=== PATIENT | female | born 1980 | race Two or more races ===

== ENCOUNTER → 2016-10-01 | Day surgery (SDC) | payer OTHER ==
[~2016-10-01] VITALS: Ht 154.9 cm; Wt 108.0 kg
[2016-10-01] VITALS (14 sets, daily range): BP systolic 114–159; BP diastolic 58–92
[~2016-10-01] MED LIST: Bupivacaine w/Epi 0.25% 30ml Vial INJ ONE; Dexamethasone 4mg/ml vial ONE; EPINEPHrine 1mg/1ml Amp IRRIG ONE; Glycopyrrolate 0.2mg/ml 1ml Vial ONE; Hydromorphone 0.5mg/0.5ml inj IVP PRN; IBUPROFEN600 MG ORAL; Ketorolac 30mg Inj IV ONE; Ketorolac 30mg Inj ONE; Midazolam 2mg/2ml Inj ONE; Morphine Sulfate 2mg/ml Inj IVP PRN; NS Irrig 4000ml IRRIG ONE; Neostigmine 1mg/ml 10ml Inj ONE; Norco 5mg/325mg tab ORAL PRN; Propofol 10mg/ml 20ml IV ONE; Succinylcholine 20mg/ml 10ml vial ONE; TRAMADOL HCL50 MG ORAL; Zemuron 50mg/5ml Inj IV ONE; ceFAZolin 1gm/50ml Premix 50 ML IV ONE; celeBREX 200mg Cap **SURGERY PATIENTS ONLY ORAL ONE; fentaNYL 100 mcg/2 mL IV ONE; oxyCONTIN 20mg tab ORAL ONE
--- NOTE | 2016-10-01 07:19 | Pre-Procedure Note/Attestation ---
Pre-Procedure Note/Attestation Complete Prior to Procedure Planned Procedure: right Procedure Narrative: shoulder arthroscopy, possible rct repair, sad Indications for Procedure Pre-Operative Diagnosis: right shoulder rct, impingement Attestation I attest that I discussed the nature of the procedure; its benefits; risks and complications; and alternatives (and the risks and benefits of such alternatives ), prior to the procedure, with the patient (or the patient's legal call center representative). I attest that, if there was a reasonable possibility of needing a blood transfusion, the patient (or the patient's legal call center representative) was given the [facility] standardized written summary, pursuant to the [place] Blood Safety Act ([place] Health and Safety Code # 1645, as amended). I attest that I re-evaluated the patient just prior to the surgery and that there has been no change in the patient's H&P, except as documented below: DARIO LAU Oct 01, 2016 07:19
--- NOTE | 2016-10-01 07:20 | Operative Note - PDOC ---
Operative Note Operative Note Pre-op Diagnosis: right shoulder rct, impingement Procedure: right shoulder arthroscopy, sad Post-op Diagnosis: same as pre-op plus Operative Findings: consistent w/pre-op dx studies Anesthesia: MAC Specimen: none Complications: none Condition: stable Estimated Blood Loss: none Implant(s) used?: No DARIO LAU Oct 01, 2016 07:20
--- NOTE | 2016-10-01 11:13 | Anethesia Preoperative Eval ---
Anesthesia Pre-op PMH/ROS General Date of Evaluation: Oct 01, 2016 Time of Evaluation: 10:35 Anesthesiologist: CELESTINA ASA Score: ASA 3 Mallampati Score Class I : Soft palate, uvula, fauces, pillars visible Class II: Soft palate, uvula, fauces visible Class III: Soft palate, base of uvula visible Class IV: Only hard plate visible Mallampati Classification: Class III Surgeon: JUDI Diagnosis: R SHOULDER IMPINGMENT Surgical Procedure: ARTHROSCOPIC REPAIR Anesthesia History: none Family History: no anesthesia problems Allergies: Coded Allergies: No Known Allergies (Unverified , 09/30/16) Medications: see eMAR Past Medical History Cardiovascular: Denies: CAD, HTN, [place], arrhythmia, other, valve dz Pulmonary: Denies: COPD, [place], asthma, other Gastrointestinal/Genitourinary: Denies: CRI, ESRD, GERD, other Neurologic/Psychiatric: Denies: CVA, TIA, dementia, depression/anxiety, other Endocrine: Denies: DM, hypothyroidism, other, steroids HEENT: Denies: HYDABURG (L), HYDABURG (R), cataract (L), cataract (R), glaucoma, other Hematology/Immune: Denies: DVT, anemia, bleeding disorder, other Musculoskeletal/Integumentary: Denies: DDD, DJD, OA, RA, edema, other Other: obesity - MORBID Anesthesia Pre-op Phys. Exam Physician Exam Last Vital Signs Date Time Temp Pulse Resp B/P Pulse Ox O2 Delivery O2 Flow Rate FiO2 10/01/16 09:06 97.9 68 20 124/63 98 Room Air Constitutional: NAD Neurologic: CN 2-12 intact Cardiovascular: RRR Respiratory: CTA Gastrointestinal: S/NT/ND Airway Exam Mallampati Score: Class III MO: full ROM: full Teeth: intact Dentures: no lower, no upper Anesthesia Pre-op A/P Labs Urine Test Test 10/01/16 08:25 Urine HCG, Qualitative Negative Risk Assessment & Plan Assessment: ASA 3 Plan: GET AFTER INTERSCALENE BLOCK Status Change Before Surgery: No Pre-Antibiotics Drug: ANCEF Given Within 1 Hr of Incision: Yes Time Given: 10:50 BLANCO OSCAR M.D. Oct 01, 2016 11:13
--- NOTE | 2016-10-01 11:14 | Immediate Post-Op Evaluation ---
Immediate Post-Op Evalulation Immediate Post-Op Evalulation Procedure: ARTHROSCOPIC REPAIR R SHOULDER Date of Evaluation: Oct 01, 2016 Time of Evaluation: 12:00 IV Fluids: 700 Blood Products: 0 Estimated Blood Loss: 0 Urinary Output: 0 Blood Pressure Systolic: 150 Blood Pressure Diastolic: 90 Pulse Rate: 63 Respiratory Rate: 21 O2 Sat by Pulse Oximetry: 97 Temperature (Fahrenheit): 97.4 Pain Score (1-10): 1 Nausea: No Vomiting: No Patient Status: awake, patent, none Hydration Status: adequate Drug: ANCEF Given Within 1 Hr of Incision: Yes Time Given: 10:50 BLANCO OSCAR M.D. Oct 01, 2016 11:14
--- NOTE | 2016-10-01 11:15 | 48 Hour Post Anesthesia Eval ---
Post Anesthesia Evaluation Procedure: ARTHROSCOPIC REPAIR R SHOULDER Date of Evaluation: Oct 01, 2016 Time of Evaluation: 14:00 Blood Pressure Systolic: 134 0: 88 Pulse Rate: 77 Respiratory Rate: 20 Temperature (Fahrenheit): 98 O2 Sat by Pulse Oximetry: 99 Airway: patent Nausea: No Vomiting: No Pain Intensity: 1 Hydration Status: adequate Cardiopulmonary Status: WNL Mental Status/LOC: patient returned to baseline Post-Anesthesia Complications: O Follow-up care needed: ready to discharge BLANCO OSCAR M.D. Oct 01, 2016 11:15
--- NOTE | 2016-10-01 23:29 | Operative Note - Dictated ---
DATE OF OPERATION: 10/01/2016 PREOPERATIVE DIAGNOSES: 1. Right shoulder partial rotator cuff tear. 2. Impingement syndrome. POSTOPERATIVE DIAGNOSES: 1. Right shoulder partial supraspinatus tendinosis. 2. Right shoulder impingement syndrome with hypertrophic coracoclavicular ligament. 3. Biceps tenosynovitis. PROCEDURES: 1. Right shoulder diagnostic arthroscopy. 2. Subacromial decompression with release of the coracoacromial ligament. SURGEON: Miguel Angel Sinclair M.D. ANESTHESIA: Interscalene with general. INDICATION FOR PROCEDURE: The patient is a pleasant female, who has had progressive right shoulder pain. She had MRI, which showed possible tendinosis versus partial tear of the rotator cuff. She also has evidence of clinical impingement. She had continued pain despite conservative treatment and elected to undergo right shoulder arthroscopy, subacromial decompression bursectomy, and possible rotator cuff repair versus debridement. Risks, limitations, expectations, and complications related to procedure were discussed in detail. DESCRIPTION OF PROCEDURE: An informed consent was obtained. The patient was brought to the operating room and placed under interscalene general anesthesia. The patient was then carefully placed in a beach chair position. Right shoulder was prepped and draped in a sterile manner. Time-out was performed. The portal sites were injected with 0.25% Marcaine with epinephrine. Inferolateral stab incision was then made. Trocar was introduced into the glenohumeral joint. There is no significant chondral damage. There is significant erythema along the superior labrum extending into the hand, but not along the biceps tendon and bicipital eriberto area. The undersurface of the supraspinatus had some erythema along the bursal side of the rotator cuff, but no cristina tear. No loose bodies. The labrum appeared to be intact. At this point, the camera was repositioned in the subacromial space. There was hypertrophic bursal tissue. The bursal tissue was resected along with release of the coracoclavicular ligament. Once this was done, the acromial spur was identified and acromioplasty was performed from lateral to medial and completed from posterior to anterior. Once this was done, the bursa from the posterior aspect was completely debrided. Once this was done, the bursal side of the rotator cuff was evaluated and noted to be intact. At this point, the camera was removed. Portal sites were closed with 3-0 Monocryl sutures. Steri-Strips and a sterile dressing were applied. The patient was awoken and taken to recovery room with stable vital signs. ESTIMATED BLOOD LOSS: Minimal. COMPLICATIONS: None. SPECIMENS: None. IMPLANTS: None. Miguel Angel Sinclair M.D. DR: DEMETRIO JOB#: [id number] CC:
[2016-10-06 12:13] VITALS: BP 134/88
== END | disposition home or self-care (01) ==
LOC: SUR 08:06
DX: M75.41 Impingement syndrome of right shoulder (principal); M24.211 Disorder of ligament, right shoulder; M75.21 Bicipital tendinitis, right shoulder; M67.813 Other specified disorders of tendon, right shoulder; F32.9 Major depressive disorder, single episode, unspecified; E66.01 Morbid (severe) obesity due to excess calories; Z68.42 Body mass index [BMI] 45.0-49.9, adult; F17.210 Nicotine dependence, cigarettes, uncomplicated
CPT/HCPCS: 29823; 81025; J0171; J0330; J0690; J1100; J1885; J2250; J2405; J2704; J2710; J3010; 94003; 94150